=== PATIENT | female | born 1980 | race Caucasian/White ===

== ENCOUNTER 2021-07-05 05:14 | Emergency (ER) | payer OTHER ==
[~2021-07-05] VITALS: Ht 154.9 cm; Wt 61.2 kg
[2021-07-05 05:21] VITALS: BP 119/58
[2021-07-05 06:25] VITALS: BP 119/58
--- NOTE | 2021-07-05 06:25 | NUR ---
Patient discharged with v/s stable. Written and verbal after care instructions given and explained. Patient verbalized understanding. Police with in custody. All questions addressed prior to discharge. Advised to follow up with PMD.
== END 2021-07-05 06:25 ==
LOC: MED 05:14
DX: Z02.89 Encounter for other administrative examinations (principal)
CPT/HCPCS: 99283